=== PATIENT | female | born 1970 | race American Indian/Alaskan Native ===

== ENCOUNTER → 2018-08-14 | Outpatient (CLI) | payer OTHER ==
--- NOTE | 2018-08-14 10:13 | Mammography Report ---
BILATERAL DIGITAL SCREENING MAMMOGRAM with CAD: 08/13/18 15:00:00 CLINICAL: Routine screening. COMPARISON:09/25/16 FINDINGS: The breasts are heterogeneously dense, which may obscure small masses. No mass, architectural distortion or suspicious calcifications. IMPRESSION: No mammographic evidence of malignancy. BI-RADS CATEGORY: 1 - - Negative RECOMMENDATION: Routine mammographic screening in one year. COMMENT: Patient follow-up letters are generated by our [employer] application.
== END | disposition home or self-care (01) ==
LOC: MAMMO 08-13 15:27
PROVIDERS: ATTEND Family Medicine
DX: Z12.31 Encounter for screening mammogram for malignant neoplasm of breast (principal); I10 Essential (primary) hypertension; M19.90 Unspecified osteoarthritis, unspecified site; Z90.710 Acquired absence of both cervix and uterus
CPT/HCPCS: 77067

== ENCOUNTER 2020-01-07 09:26 | Outpatient (CLI) | payer OTHER ==
--- NOTE | 2020-01-07 12:50 | Mammography Report ---
DIGITAL SCREENING MAMMOGRAM WITH CAD, 01/07/2020 INDICATION: Routine screening mammography. TECHNIQUE: Digital bilateral 2D mammography was obtained in the craniocaudal and mediolateral obliq ue projections. This examination was interpreted with the benefit of Computer-Aided Detection analysi s. COMPARISON: 08/13/2018 FINDINGS: Breast Density: The breasts are heterogeneously dense, which may obscure small masses. A left asymmetry on the CC view requires additional imaging. No suspicious architectural distortion o r calcifications of the left breast. There is no evidence of dominant mass, suspicious calcifications or architectural distortion in the right breast. IMPRESSION: Left asymmetry requiring additional imaging. Recommend recall for left lateral medial and spot compression CC views and left breast ultrasound if needed. Follow up recommendation: Special View: Spot Category 0: Incomplete. Needs additional imaging evaluation and/or prior mammograms for comparison. A "normal" or negative report should not discourage follow up or biopsy of a clinically significant f inding. A written summary of these findings will be mailed to the patient. The patient will be entered into a mammography reporting system which will generate a reminder letter for the patient's next appointmen t at the appropriate interval. The [employer] recommends yearly mammograms starting at age 40 and continuing as l kelley as a woman is in good health. Breast MRI is recommended for women with an approximate 20-25% or greater lifetime risk of breast cancer, including women with a strong family history of breast or ova dominic cancer or who have been treated for Hodgkin's disease. Signer Name: Vinny Wells MD Signed: 01/07/2020 12:45 PM Workstation Name: [id number]
== END 2020-01-07 09:27 | disposition home or self-care (01) ==
LOC: MAMMO 09:26
PROVIDERS: ATTEND Family Medicine
DX: Z12.31 Encounter for screening mammogram for malignant neoplasm of breast (principal)
CPT/HCPCS: 77067

== ENCOUNTER 2020-02-11 09:21 | Outpatient (CLI) | payer OTHER ==
--- NOTE | 2020-02-11 10:47 | Mammography Report ---
DIGITAL DIAGNOSTIC MAMMOGRAM WITH CAD, 02/11/2020 INDICATION: Recall for asymmetry. ABN MAMMO TECHNIQUE: Digital left mammographic imaging was performed. This examination was interpreted with the benefit of Computer-aided Detection analysis. COMPARISON: 01/07/2020 FINDINGS: Breast Density: The breast is heterogeneously dense, which may obscure small masses. LM and spot compression CC views were performed and are negative. IMPRESSION: No mammographic evidence of malignancy. Follow up recommendation: Routine yearly BI-RADS Category 1: Negative. A "normal" or negative report should not discourage follow up or biopsy of a clinically significant f inding. A written summary of these findings will be mailed to the patient. The patient will be entered into a mammography reporting system which will generate a reminder letter for the patient's next appointmen t at the appropriate interval. According to the [employer], yearly mammograms are recommended starting at age 40 and continuing as long as a woman is in good health. Breast MRI is recommended for women with an sadi roximately 20-25% or greater lifetime risk of breast cancer, including women with a strong family his tory of breast or ovarian cancer and women who have been treated for Hodgkin's disease. Signer Name: Vinny Wells MD Signed: 02/11/2020 10:43 AM Workstation Name: [id number]
== END 2020-02-11 09:22 | disposition home or self-care (01) ==
LOC: MAMMO 09:21
PROVIDERS: ATTEND Family Medicine
DX: R92.8 Other abnormal and inconclusive findings on diagnostic imaging of breast (principal)